=== PATIENT | male | born 1965 | race Caucasian/White ===

== ENCOUNTER 2023-02-05 15:14 | Outpatient (RCR) | payer OTHER, SELFPAY | END 2023-02-05 23:59 | disposition home or self-care (01) | LOC: RPT 15:14 | PROVIDERS: ATTENDING PHYSICIAN Family Medicine | DX: I89.0 Lymphedema, not elsewhere classified (principal); Z73.6 Limitation of activities due to disability; M54.16 Radiculopathy, lumbar region | CPT/HCPCS: 97140 ==

== ENCOUNTER 2023-03-05 14:02 | Outpatient (RCR) | payer BC, SELFPAY | END 2023-03-05 23:59 | disposition home or self-care (01) | LOC: RPT 14:02 | PROVIDERS: ATTENDING PHYSICIAN Family Medicine | DX: I89.0 Lymphedema, not elsewhere classified (principal); Z73.6 Limitation of activities due to disability; M54.16 Radiculopathy, lumbar region; C25.9 Malignant neoplasm of pancreas, unspecified; G62.0 Drug-induced polyneuropathy | CPT/HCPCS: 97140; 97162 ==

== ENCOUNTER → 2023-03-20 09:37 | Outpatient (REF) | payer BC, SELFPAY ==
[2023-03-20 10:00] VITALS: BP 98/65; BP_SYST 68
[2023-03-20 11:19] LABS: Body Fluid Mononuclear 93.8 %; Body Fluid Polymorphonuclear 6.2 %; Body Fluid WBC 97 /CUMM
[2023-03-20 11:20] VITALS: BP 82/51
[2023-03-20 11:20] LABS: Body Fluid Second Tech RLT
== END ==
LOC: RADI 09:37
PROVIDERS: Physician Assistant; ATTENDING PHYSICIAN Internal Medicine Hematology & Oncology; FAMILY PHYSICIAN Family Medicine
DX: R18.8 Other ascites (principal)
CPT/HCPCS: 49083; 89051

== ENCOUNTER → 2023-03-28 09:26 | Outpatient (REF) | payer BC, SELFPAY ==
[2023-03-28 09:44] VITALS: BP 101/55; BP_SYST 63
[2023-03-28 11:30] LABS: Body Fluid Mononuclear 86.3 %; Body Fluid Polymorphonuclear 13.7 %; Body Fluid WBC 116 /CUMM
[2023-03-28 11:46] LABS: Body Fluid Second Tech SD
== END ==
LOC: RADI 09:26
PROVIDERS: ATTENDING PHYSICIAN Internal Medicine Hematology & Oncology; FAMILY PHYSICIAN Family Medicine
DX: R18.8 Other ascites (principal)
CPT/HCPCS: 49083; 87015; 87070; 87205; 89051

== ENCOUNTER → 2023-04-04 12:37 | Outpatient (REF) | payer BC, SELFPAY ==
[2023-04-04 12:55] VITALS: BP 96/75; BP_SYST 80
[2023-04-04 13:59] VITALS: BP 102/66; BP_SYST 83
[2023-04-04 14:46] LABS: Body Fluid WBC 93 /CUMM
[2023-04-04 14:47] LABS: Body Fluid Mononuclear 83.9 %; Body Fluid Polymorphonuclear 16.1 %; Body Fluid Second Tech EM
== END ==
LOC: RADI 12:37
PROVIDERS: ATTENDING PHYSICIAN Internal Medicine Hematology & Oncology
DX: R18.8 Other ascites (principal)
CPT/HCPCS: 49083; 89051

== ENCOUNTER → 2023-04-09 13:43 | Outpatient (REF) | payer BC, SELFPAY ==
[2023-04-09 14:02] VITALS: BP 106/75; BP_SYST 60
[2023-04-09 15:33] VITALS: BP 83/58; BP_SYST 61
[2023-04-09 15:46] VITALS: BP 97/57; BP_SYST 60
[2023-04-09 16:06] LABS: Body Fluid Mononuclear 74.2 %; Body Fluid Polymorphonuclear 25.8 %; Body Fluid WBC 93 /CUMM
[2023-04-09 16:08] LABS: Body Fluid Second Tech DW
== END ==
LOC: RADI 13:43
PROVIDERS: ATTENDING PHYSICIAN Internal Medicine Hematology & Oncology; FAMILY PHYSICIAN Family Medicine
DX: C80.1 Malignant (primary) neoplasm, unspecified (principal); R18.0 Malignant ascites
CPT/HCPCS: 88305; 49083; 88112; 88341; 88342; 89051

== ENCOUNTER → 2023-04-16 10:27 | Outpatient (REF) | payer BC, SELFPAY ==
[2023-04-16 10:48] VITALS: BP 111/78; BP_SYST 75
[2023-04-16 11:27] VITALS: BP 87/59; BP_SYST 76
[2023-04-16 12:15] VITALS: BP 90/69
[2023-04-16 13:33] LABS: Body Fluid Mononuclear 83.5 %; Body Fluid Polymorphonuclear 16.5 %; Body Fluid WBC 103 /CUMM
[2023-04-16 14:26] LABS: Body Fluid Second Tech SS
== END ==
LOC: RADI 10:27
PROVIDERS: ATTENDING PHYSICIAN Internal Medicine Hematology & Oncology; FAMILY PHYSICIAN Family Medicine
DX: R18.8 Other ascites (principal)
CPT/HCPCS: 49083; 89051

== ENCOUNTER → 2023-04-25 12:20 | Outpatient (REF) | payer BC, SELFPAY ==
[2023-04-25] VITALS (13 sets, daily range): BP systolic 64–98; BP diastolic 48–76
[2023-04-25] MEDS: ANCEF 10 IV (14:00)
== END ==
LOC: RADI 12:20
PROVIDERS: ATTENDING PHYSICIAN Internal Medicine Hematology & Oncology; FAMILY PHYSICIAN Family Medicine
DX: C80.1 Malignant (primary) neoplasm, unspecified (principal); R18.0 Malignant ascites
CPT/HCPCS: 49418; 99152; 99153; C1729; C1769